=== PATIENT | male | born 1960 | race Caucasian/White ===

== ENCOUNTER 2017-12-09 20:27 | Emergency (ER) | payer BC, OTHER ==
--- NOTE | 2017-12-09 20:36 | PDOC ---
Rapid Medical Evaluation Time Seen by Provider: 12/09/17 20:36 Medical Evaluation: Allergies Allergy/AdvReac Type Severity Reaction Status Date / Time No Known Allergies Allergy Verified 10/01/15 14:36 12/09/17 20:36 57 year old male with hypertension and hypothyroidism, seen in Dr. Alvarez's office earlier today with severe low back pain radiating down the right leg. Given "a shot of something" but the pain has returned. Given Medrol dose pack and Tylenol #3 rx, but has not started either yet. Complains of numbness in the right leg. No bladder or bowel incontinence. Moving all extremities. 5/5 LE strength bilaterally. -Toradol 30mg IM x 1 -To FT for further evaluation Discharge Disposition - Referrals Referrals: Aria Alvarez MD [Primary Care Provider] - - Patient Instructions - Post Discharge Activity
[2017-12-09] MEDS ORDERED: KETOROLAC TROMETHAMINE 30 MG/1 ML VIAL IM ONE (20:39)
[2017-12-09 20:49] VITALS: BP 142/100; PULSE 88; TEMP 97.8; BMI 39.1
[2017-12-09] MEDS ORDERED: diazePAM 2 MG TABLET PO ONE (21:12)
[2017-12-09] MEDS ORDERED: KETOROLAC TROMETHAMINE 30 MG/1 ML VIAL ONE (21:59)
[2017-12-09] MEDS ORDERED: diazePAM 2 MG TABLET ONE (21:59)
--- NOTE | 2017-12-09 22:23 | PDOC ---
History of Present Illness <Shelia Otrega - Last Filed: 12/09/17 22:22> - General History Source: Patient Exam Limitations: No Limitations - History of Present Illness Initial Comments: 12/09/17 23:04 The patient is 57 year old male with past medical history of hypertension and hypothyroidism was sent to the emergency department by Dr. Tony with right lower extremity pain. The patient reports he was given a shot at the office for the pain but the effect is gone. The patient reports the pain started at mid buttock that radiates down to his right leg. Denies any fecal or urinary incontinence. No weakness, numbness or loss of sensation to the right extremities. Denies being on her blood thinners currently. Allergies: NKDA Social history: Former smoker. Denies alcohol or recreational drugs use. PCP: Dr. Tyrone Tony <Latisha Rivera - Last Filed: 12/09/17 23:20> - General Chief Complaint: Back Pain Stated Complaint: BACK PAIN Time Seen by Provider: 12/09/17 20:36 Past History - Suicide/Smoking/Psychosocial Hx Smoking History: Unknown if ever smoked Have you smoked in the past 12 months: No If you are a former smoker, when did you quit?: 15 YRS Hx Alcohol Use: Yes (SOCIAL) Drug/Substance Use Hx: No Substance Use Type: None <Shelia Ortega - Last Filed: 12/09/17 22:22> <Latisha Rivera - Last Filed: 12/09/17 23:20> - Past Medical History Allergies/Adverse Reactions: Allergies Allergy/AdvReac Type Severity Reaction Status Date / Time No Known Allergies Allergy Verified 12/09/17 20:37 Home Medications: Ambulatory Orders Acetaminophen W/ Codeine #3 [Tylenol # 3 -] 1 tab PO Q6H 12/09/17 Levothyroxine [Synthroid -] 75 mcg PO DAILY 12/09/17 Losartan Potassium [Cozaar -] 50 mg PO DAILY 12/09/17 Methylprednisolone [Medrol Dose Sandip] 4 mg PO ASDIR 12/09/17 Metoprolol Succinate [Toprol Xl -] 50 mg PO DAILY 12/09/17 Review of Systems - Review of Systems Able to Perform ROS?: Yes Comments:: 12/09/17 23:06 CONSTITUTIONAL: Absent: fever, no chills, no fatigue EYES: Absent: visual changes ENT: Absent: ear pain, no sore throat CARDIOVASCULAR: Absent: chest pain, no palpitations RESPIRATORY: Absent: cough, no SOB GI: Absent: abdominal pain, no nausea, no vomiting, no constipation, no diarrhea GENITOURINARY: Absent: dysuria, no frequency, no hematuria MUSKULOSKELETAL: (+) Right lower extremity pain. Absent: back pain, no arthralgia, no myalgia SKIN: Absent: rash NEURO: Absent: headache <Latisha Rivera - Last Filed: 12/09/17 23:20> *Physical Exam - Vital Signs Last Vital Signs Temp Pulse Resp BP Pulse Ox 97.8 F 88 26 H 142/100 99 12/09/17 20:41 12/09/17 20:41 12/09/17 20:41 12/09/17 20:41 12/09/17 20:41 <Shelia Ortega - Last Filed: 12/09/17 22:22> - Vital Signs Last Vital Signs Temp Pulse Resp BP Pulse Ox 97.8 F 88 26 H 142/100 99 12/09/17 20:41 12/09/17 20:41 12/09/17 20:41 12/09/17 20:41 12/09/17 20:41 - Physical Exam Comments: 12/09/17 23:17 GENERAL: Well-appearing, well-nourished. No apparent distress. HEENT: Normocephalic, atraumatic. PERRL, EOM intact. CARDIOVASCULAR: Normal S1, S2. Regular rate and rhythm. PULMONARY: Clear to auscultation bilaterally. ABDOMEN: (+) protuberant belly. Soft, non-distended, non-tender. EXTREMITIES: no deformities. Normal ROM in all four extremities. No gross deformities. SKIN: Warm, dry. No rash NEUROLOGICAL: No focal neurological deficits. ROS: <Latisha Rivera - Last Filed: 12/09/17 23:20> Moderate Sedation - Procedure Monitoring Vital Signs: Vital Signs Temp Pulse Resp BP Pulse Ox 97.8 F 88 26 H 142/100 99 12/09/17 20:41 12/09/17 20:41 12/09/17 20:41 12/09/17 20:41 12/09/17 20:41 <Shelia Ortega - Last Filed: 12/09/17 22:22> - Procedure Monitoring Vital Signs: Vital Signs Temp Pulse Resp BP Pulse Ox 97.8 F 88 26 H 142/100 99 12/09/17 20:41 12/09/17 20:41 12/09/17 20:41 12/09/17 20:41 12/09/17 20:41 <Latisha Rivera - Last Filed: 12/09/17 23:20> ED Treatment Course - RADIOLOGY Radiology Studies Ordered: Category Date Time Status LUMBAR SPINE CT W/O CONTRAST [CT] Stat CT Scan 12/09/17 21:12 Ordered <Shelia Ortega - Last Filed: 12/09/17 22:22> - Medications Given in the ED: ED Medications Discontinued Medications Generic Name Dose Route Start Last Admin Trade Name Freq PRN Reason Stop Dose Admin Diazepam 2 mg 12/09/17 21:12 12/09/17 22:37 Valium - PO 12/09/17 21:13 Not Given ONCE ONE Ketorolac Tromethamine 30 mg 12/09/17 20:39 12/09/17 22:36 Toradol Injection - IM 12/09/17 20:40 30 mg ONCE ONE Administration Oxycodone/Acetaminophen 2 combo 12/09/17 21:11 12/09/17 22:36 Percocet 5/325 - PO 12/09/17 21:12 Not Given ONCE ONE <Latisha Rivera - Last Filed: 12/09/17 23:20> Medical Decision Making - Medical Decision Making 12/09/17 23:18 Patient refused to take his opioid medication and CAT scan, patient was discharged. <Latisha Rivera - Last Filed: 12/09/17 23:20> *DC/Admit/Observation/Transfer <Shelia Ortega - Last Filed: 12/09/17 22:22> - Attestations Scribe Attestion: 12/09/17 23:06 Documentation prepared by Latisha Rivera, acting as medical housekeeper for Shelia Ortega MD. <Latisha Rivera - Last Filed: 12/09/17 23:20> Diagnosis at time of Disposition: Sciatica Qualifiers: Laterality: right Qualified Code(s): M54.31 - Sciatica, right side - Discharge Dispostion Disposition: HOME Condition at time of disposition: Stable - Referrals Referrals: Aria Tony MD [Primary Care Provider] - - Patient Instructions Printed Discharge Instructions: DI for Sciatica Additional Instructions: PLEASE FOLLOW UP WITH DR TONY - Post Discharge Activity
== END 2017-12-09 22:37 | disposition home or self-care (01) ==
LOC: JER 20:27
PROC: 3E0233Z Introduction of Anti-inflammatory into Muscle, Percutaneous Approach (ICD-10-PCS; principal; 2017-12-09)
DX: M54.41 Lumbago with sciatica, right side (principal); I10 Essential (primary) hypertension; E03.9 Hypothyroidism, unspecified
CPT/HCPCS: 99281-25

== ENCOUNTER 2017-12-17 11:51 | Day surgery (SDC) | payer BC ==
[2017-12-17 12:07] LABS: BASO % 0.2 % (0-2.0); HEMATOCRIT 49.6 % (35.4-49); HEMOGLOBIN 17.4 GM/dL (11.7-16.9); LYMPH % 34.6 % (8-40); MCH 30.1 pg (25.7-33.7); MEAN PLT VOLUME 6.7 fl (7.5-11.1); MONO % 7.4 % (3.8-10.2); NEUT % 56.8 % (42.8-82.8); PLATELET COUNT 507 K/MM3 (134-434); RBC 5.77 M/mm3 (4.00-5.60); WHITE BLOOD COUNT 20.5 K/mm3 (4.0-10.0)
[2017-12-17 12:26] VITALS: BMI 35.2
[2017-12-17 12:27] LABS: INR 1.06 (0.82-1.09)
[2017-12-17 12:35] LABS: PLATELET ESTIMATE INCREASED
[2017-12-17] MEDS ORDERED: BUPIVACAINE HCL/PF 0.5% (5MG/ML) 10 ML VIAL ONE (13:48)
[2017-12-17 15:16] VITALS: TEMP 98.7
[2017-12-17 16:39] VITALS: BP 103/73; PULSE 93
== END 2017-12-17 16:42 | disposition home or self-care (01) ==
LOC: JRADIR 11:51
PROVIDERS: ATTEND Family Medicine
PROC: 3E0R3BZ Introduction of Anesthetic Agent into Spinal Canal, Percutaneous Approach (ICD-10-PCS; principal; 2017-12-17)
PROC: 3E0R33Z Introduction of Anti-inflammatory into Spinal Canal, Percutaneous Approach (ICD-10-PCS; 2017-12-17)
PROC: B01BYZZ Fluoroscopy of Spinal Cord using Other Contrast (ICD-10-PCS; 2017-12-17)
DX: M51.27 Other intervertebral disc displacement, lumbosacral region (principal); M21.371 Foot drop, right foot; M54.89 Other dorsalgia
CPT/HCPCS: 36415; 62322; 77003-TC-FY; 85025; 85610

== ENCOUNTER 2017-12-17 18:04 | Inpatient (IN) | payer BC ==
--- NOTE | 2017-12-17 18:21 | PDOC ---
Rapid Medical Evaluation Time Seen by Provider: 12/17/17 18:15 Medical Evaluation: Allergies Allergy/AdvReac Type Severity Reaction Status Date / Time No Known Allergies Allergy Verified 12/17/17 18:15 12/17/17 18:15 Pt. presents with lower back pain radiating down to this R foot. States that the foot is numb. Went for epidural to the back with little relief of symptoms. Pt. to be admitted for surgery by Dr. Dubois tomorrow d/t nerve impingement. No bladder/bowel incontinence, saddle anesthesia Exam: in moderate distress d/t pain. non-ambulatory Orders: Labs, EKG, CXR Pt. to proceed to main ED for further evaluation
--- NOTE | 2017-12-17 18:30 | PDOC ---
Attending Attestation - Resident Resident Name: Jordan Ivan - ED Attending Attestation I have performed the following: I have examined & evaluated the patient, The case was reviewed & discussed with the resident, I agree w/resident's findings & plan, Exceptions are as noted - HPI HPI: 12/17/17 18:29 57 yo male p/w rt foot drop and neurosurgeon Dr Tomi Dubois is doing surgery for nerve impingement 12/17/17 19:09 WNWD 57 YO MALE head ncat lunbs cta b/l cvs [id number] abd protuberant,nontender neuro axox3,rt footdrop. ext no deformities - Physicial Exam PE: 12/18/17 04:01 PLEASE READ ABOVE - Medical Decision Making 12/17/17 19:05 pt will be admitted for surgery tomorrow
[2017-12-17 19:07] LABS: HEMATOCRIT 50.6 % (35.4-49); HEMOGLOBIN 17.4 GM/dL (11.7-16.9); MCH 29.8 pg (25.7-33.7); MCHC 34.5 g/dl (32.0-35.9); MEAN CELL VOLUME 86.3 fl (80-96); MEAN PLT VOLUME 6.9 fl (7.5-11.1); PLATELET COUNT 427 K/MM3 (134-434); RBC 5.86 M/mm3 (4.00-5.60); RDW 12.6 % (11.9-15.9)
[2017-12-17 19:27] LABS: INR 1.05 (0.82-1.09); PROTHROMBIN TIME (PATIENT) 11.9 SEC (9.7-13.0)
[2017-12-17 19:39] LABS: ANION GAP 9 (8-16); BLOOD UREA NITROGEN 24 mg/dL (7-18); CALCIUM 9.5 mg/dL (8.5-10.1); CHLORIDE 97 mmol/L (98-107); CO2 28 mmol/L (21-32); CREATININE 1.1 mg/dL (0.7-1.3); GLUCOSE,RANDOM 113 mg/dL (74-106); POTASSIUM 4.2 mmol/L (3.5-5.1); SGOT/AST 32 U/L (15-37); SGPT/ALT 84 U/L (12-78); SODIUM 134 mmol/L (136-145); TOT PROT 7.2 g/dl (6.4-8.2)
[2017-12-17 19:40] LABS: ALK PHOS 64 U/L (45-117)
--- NOTE | 2017-12-17 21:03 | PN ---
Progress Note (short form) - Note Progress Note: NEUROSURGERY Requested by Dr. Alvarez to see pt Chronic mild intermittent back pain Lifted up a large bottle of water > 1 week ago adn c/o severe pain radiating to R buttock, thigh, calf, foot. + weakness and difficulty ambulating. + numbness. Received IV steroid and hospitalized at [facility] last week. Persistent pain and R sciatica. Constipation and urinary hesitancy, though may be related to narcotic painkillers. Had EPSI earlier today but pain persisted. PMH: HTN, hypothyroidism MEDS: metoprolol, ASA(held x 10 days + as pt was not able to go shopping), synthroid, oxycodone NKDA So Hx: quite smoking > 1 decade ago; Occ EtOH; retired from being a flexographic printing machinist Family Hx: breast CA in mother ROS- negative for other constitutional, Head & neck, CV, Pulm, GI, , onc, psych, neuro issues other than the above PE: AF, VSS HEENT- NC/AT; Neck- supple; Cor- RRR; Lungs- CTA B; Abd- benign, mildly obese; Ext- no sign of DVT CN- intact; Motor- 5/5 except R IP/Quad/gastroc/TA/Ev 4-4-, R EHL/inv 3; Sensation- decreased LT/PP R L5-S1 > L4; DTR- 2+; Back- R sciatica notch tenderness; + SLR on R at 30 degrees WBC 17, Hgb 17.4, platelet 427k; INR 1.05, Cr 1.1, BUN 24; Na 134 UA 1 WBC, < 1 RBC LS spine MRI- mild disc bulges L2-3, L3-4, L4-5; facet and ligamentum hypertrophy; moderate L4-5 foramenal and lateral recess stenosis; R L5-S1 foramenal disc protrusion with superiorly migrating disc fragment and R L5 root impingement Acute R L5-S1 foramenal disc herniation/extrusion and L4-5 stenosis with intractable of R L5 > L4/S1 radiculopathy including neurological deficit ( weakness, numbness corresponding to L4-5 and L5-S1 pathology) OR tomorrow for R L4-5 partial laminectomies; R L5-S1 partial laminectomies, medial facetectomies, foramenotomy, microdiscectomy Risks: bleeding, infection, CSF leak, dural tear, neurological injury, instability; recurrence, need for future surgery Pre-op clearance in progress NPO after MN D/w Dr Alvarez and ED team Bed need d/w nursing supervisor engine repair, floor head nurse, and ED attending Pt and family aware of plan
[2017-12-17] MEDS ORDERED: HYDROmorphone HCL CARPU-JECT 1 MG/1 ML DISP.SYRIN IVPB PRN (21:32)
[2017-12-17] MEDS ORDERED: diazePAM CARPU-JECT 10 MG/2 ML DISP.SYRIN IVPUSH ONE (21:32)
--- NOTE | 2017-12-17 21:36 | PDOC ---
History of Present Illness - General Chief Complaint: Back Pain Stated Complaint: PCP SENT Time Seen by Provider: 12/17/17 18:15 History Source: Patient Exam Limitations: No Limitations - History of Present Illness Initial Comments: 12/17/17 21:49 Patient is a 57M with history of HTN here today complaining of back pain for the past several weeks. He was sent in by Dr Dubois for surgery tomorrow AM. Patient denies fevers, chills, cancer history, urinary symptoms, and saddle anesthesia. Endorses right foot weakness. Denies chest pain, abdominal pain, nausea and vomiting. Past History - Past Medical History Allergies/Adverse Reactions: Allergies Allergy/AdvReac Type Severity Reaction Status Date / Time No Known Allergies Allergy Verified 12/17/17 18:15 Home Medications: Ambulatory Orders Acetaminophen W/ Codeine #3 [Tylenol # 3 -] 1 tab PO Q6H 12/09/17 Levothyroxine [Synthroid -] 75 mcg PO DAILY 12/09/17 Losartan Potassium [Cozaar -] 50 mg PO DAILY 12/09/17 Methylprednisolone [Medrol Dose Sandip] 4 mg PO ASDIR 12/09/17 Metoprolol Succinate [Toprol Xl -] 50 mg PO DAILY 12/09/17 Cyclobenzaprine HCl [Flexeril -] 5 mg PO HS 12/17/17 Gabapentin [Neurontin] 100 mg PO TID 12/17/17 HYDROmorphone [Dilaudid -] 4 mg PO Q6H PRN 12/17/17 Omeprazole 40 mg PO DAILY 12/17/17 Pitavastatin Calcium [Livalo] 2 mg PO DAILY 12/17/17 Prednisone [Deltasone] 20 mg PO DAILY 12/17/17 COPD: No HTN: Yes - Suicide/Smoking/Psychosocial Hx Smoking History: Unknown if ever smoked Have you smoked in the past 12 months: No If you are a former smoker, when did you quit?: 15 YRS Information on smoking cessation initiated: No Hx Alcohol Use: Yes (SOCIAL) Drug/Substance Use Hx: No Substance Use Type: None Review of Systems - Review of Systems Comments:: 12/17/17 21:51 GENERAL/CONSTITUTIONAL: No fever or chills. HEAD, EYES, EARS, NOSE AND THROAT: No change in vision. No sore throat. CARDIOVASCULAR: No chest pain or shortness of breath RESPIRATORY: No cough, wheezing, or hemoptysis. GASTROINTESTINAL: No nausea, vomiting, diarrhea or constipation. GENITOURINARY: No dysuria, frequency, or change in urination. MUSCULOSKELETAL: No joint or muscle swelling or pain. Positive for lower back pain. SKIN: No rash NEUROLOGIC: No headache, vertigo, loss of consciousness. Positive for right foot drop. HEMATOLOGIC/LYMPHATIC: No anemia, easy bleeding, or history of blood clots. ALLERGIC/IMMUNOLOGIC: No hives or skin allergy. *Physical Exam - Vital Signs Last Vital Signs Temp Pulse Resp BP Pulse Ox 97.8 F 90 18 120/90 100 12/17/17 18:17 12/17/17 18:17 12/17/17 18:17 12/17/17 18:17 12/17/17 18:17 - Physical Exam Comments: 12/17/17 21:52 GENERAL: Awake, alert, and fully oriented, in no acute distress HEAD: No signs of trauma, normocephalic, atraumatic EYES: PERRLA, EOMI, sclera anicteric, conjunctiva clear ENT: Auricles normal inspection, hearing grossly normal, nares patent, oropharynx clear without exudates. Moist mucosa BACK: Tender in midline lower back. LUNGS: No distress, speaks full sentences, clear to auscultation bilaterally HEART: Regular rate and rhythm, normal S1 and S2, no murmurs, rubs or gallops, peripheral pulses normal and equal bilaterally. ABDOMEN: Soft, nontender, normoactive bowel sounds. No guarding, no rebound. No masses EXTREMITIES: Normal inspection, Normal range of motion, no edema. No clubbing or cyanosis. NEUROLOGICAL: Cranial nerves II through XII grossly intact. Normal speech, right foot drop SKIN: Warm, Dry, normal turgor, no rashes or lesions noted. ED Treatment Course - LABORATORY CBC & Chemistry Diagram: 12/17/17 18:51 12/17/17 18:51 - ADDITIONAL ORDERS Additional order review: Laboratory Results 12/17/17 12/17/17 12/17/17 18:51 18:51 18:51 PT with INR 11.90 INR 1.05 Sodium 134 L Potassium 4.2 Chloride 97 L Carbon Dioxide 28 Anion Gap 9 BUN 24 H Creatinine 1.1 Creat Clearance w eGFR > 60 Random Glucose 113 H Calcium 9.5 Total Bilirubin 1.0 AST 32 ALT 84 H Alkaline Phosphatase 64 Total Protein 7.2 Albumin 4.0 Blood Type A POSITIVE Antibody Screen Negative 12/17/17 18:51 RBC 5.86 H MCV 86.3 MCHC 34.5 RDW 12.6 MPV 6.9 L Neutrophils % 63.0 Lymphocytes % 28.0 Monocytes % 5.0 Eosinophils % 0.0 D Basophils % 0.0 Medical Decision Making - Medical Decision Making 12/17/17 21:54 Patient is 57M here today with back pain, going to OR tomorrow. Pre-op labs, cxr , and EKG drawn. Spoke with Dr Dubois, confirmed patient is going to OR tomorrow. Vital signs stable and normal. 12/17/17 21:56 Laboratory Tests 12/17/17 12/17/17 18:51 18:51 WBC 17.0 H Hgb 17.4 H BUN 24 H Creatinine 1.1 Labs show evidence of dehydration. Given 2L. Given dilaudid PO for pain control. *DC/Admit/Observation/Transfer Diagnosis at time of Disposition: Back pain - Discharge Dispostion Condition at time of disposition: Stable Decision to Admit order: Yes - Referrals Referrals: Aria Alvarez MD [Primary Care Provider] - - Patient Instructions - Post Discharge Activity
[2017-12-17] MEDS ORDERED: HYDROmorphone HCL 2 MG TABLET PO ONE (21:48)
[2017-12-17] MEDS ORDERED: HYDROmorphone HCL 2 MG TABLET ONE (21:51)
[2017-12-17 23:52] VITALS: BMI 33.3
[2017-12-18 00:17] LABS: URINE APPEARANCE CLEAR; URINE BILIRUBIN NEGATIVE (<2.0 mg/dL); URINE COLOR YELLOW; URINE GLUCOSE (UA) NEGATIVE (NEGATIVE); URINE KETONE NEGATIVE (NEGATIVE)
[2017-12-18 00:18] LABS: URINE BLOOD 1+ (NEGATIVE); URINE LEUK ESTERASE NEGATIVE (NEGATIVE); URINE NITRITE NEGATIVE (NEGATIVE); URINE PROTEIN NEGATIVE (NEGATIVE); URINE UROBILINOGEN NORMAL mg/dL (0.2-1.0)
[2017-12-18 00:19] LABS: URINE MUCUS RARE
[2017-12-18] MEDS: morphine SULFATE 4 MG/ML VIAL IVPUSH PRN ×2 (06:08→09:45)
[2017-12-18] MEDS ORDERED: FAMOTIDINE 20 MG/50 ML IVPB 20 MG/50 ML MG IVPB ONE (06:30)
[2017-12-18] MEDS ORDERED: DEXTROSE 5%-0.45% SALINE 1,000 ML IV SCH (06:30)
--- NOTE | 2017-12-18 08:27 | HP ---
Admitting History and Physical - Past Medical History Cardiovascular: Yes: CAD (denies), HTN, Hyperlipdemia Pulmonary: No: COPD Gastrointestinal: Yes: GERD Musculoskeletal: Yes: Chronic low back pain - Smoking History Smoking history: Unknown if ever smoked Have you smoked in the past 12 months: No If you are a former smoker, when did you quit?: 15 YRS - Alcohol/Substance Use Hx Alcohol Use: Yes (SOCIAL) Home Medications - Allergies Allergies/Adverse Reactions: Allergies Allergy/AdvReac Type Severity Reaction Status Date / Time No Known Allergies Allergy Verified 12/17/17 18:15 - Home Medications Home Medications: Ambulatory Orders Acetaminophen W/ Codeine #3 [Tylenol # 3 -] 1 tab PO Q6H 12/09/17 Levothyroxine [Synthroid -] 75 mcg PO DAILY 12/09/17 Losartan Potassium [Cozaar -] 50 mg PO DAILY 12/09/17 Methylprednisolone [Medrol Dose Sandip] 4 mg PO ASDIR 12/09/17 Metoprolol Succinate [Toprol Xl -] 50 mg PO DAILY 12/09/17 Cyclobenzaprine HCl [Flexeril -] 5 mg PO HS 12/17/17 Gabapentin [Neurontin] 100 mg PO TID 12/17/17 HYDROmorphone [Dilaudid -] 4 mg PO Q6H PRN 12/17/17 Omeprazole 40 mg PO DAILY 12/17/17 Pitavastatin Calcium [Livalo] 2 mg PO DAILY 12/17/17 Prednisone [Deltasone] 20 mg PO DAILY 12/17/17 Review of Systems - Review of Systems Cardiovascular: denies: Chest Pain Respiratory: denies: Cough, SOB, SOB on Exertion Gastrointestinal: denies: Abdominal Pain Musculoskeletal: reports: Back Pain Neurological: reports: Unsteady Gait, Weakness (right leg) Physical Examination Vital Signs: Vital Signs Temperature 97.8 F 12/18/17 06:58 Pulse Rate 104 H 12/18/17 06:58 Respiratory Rate 20 12/18/17 07:00 Blood Pressure 139/111 12/18/17 06:58 O2 Sat by Pulse Oximetry (%) 97 12/18/17 07:00 Cardiovascular: Yes: S1, S2 Respiratory: Yes: Regular, CTA Bilaterally Gastrointestinal: Yes: Normal Bowel Sounds, Soft Edema: No Neurological: Yes: Alert, Oriented, Weakness (right leg) Labs: CBC, BMP 12/17/17 18:51 12/17/17 18:51 Imaging - Results Chest X-ray: Report Reviewed Problem List - Problems (1) Lumbar disc herniation with radiculopathy Assessment/Plan: -acute -ns consult noted -to the or today Code(s): M51.16 - INTERVERTEBRAL DISC DISORDERS W RADICULOPATHY, LUMBAR REGION (2) HTN (hypertension) Assessment/Plan: -resume meds -monitor bp -ekg -cardio Code(s): I10 - ESSENTIAL (PRIMARY) HYPERTENSION (3) HLD (hyperlipidemia) Assessment/Plan: -statin Code(s): E78.5 - HYPERLIPIDEMIA, UNSPECIFIED (4) Leukocytosis Assessment/Plan: -probably related to steroids -ua nd cxr negative Code(s): D72.829 - ELEVATED WHITE BLOOD CELL COUNT, UNSPECIFIED
[2017-12-18] MEDS ORDERED: methylPREDNISolone 4 MG TABLET PO SCH (08:30)
[2017-12-18] MEDS ORDERED: PANTOPRAZOLE 40 MG TABLET (FP) PO SCH (10:00)
[2017-12-18] MEDS ORDERED: LOSARTAN POTASSIUM 50 MG TABLET (FP) PO SCH (10:00)
[2017-12-18] MEDS ORDERED: LEVOTHYROXINE NA 75 MCG TABLET (FP) PO SCH (10:00)
--- NOTE | 2017-12-18 10:17 | CON.CARD ---
Consult Consult Specialty:: Cardiology Referred by:: Aria Alvarez MD Reason for Consultation:: Pre-op cardiovascular evaluation - History of Present Illness Chief Complaint: Back pain History of Present Illness: 57 yo male h/o chest pain with negative cath c/w endothelila dysfunction vs prinzmetal variant angina, diastolic dysfunction euvolemic, HTN/HCVD, hyperlipideima, hypothyroidism, chronic mild intermittent back pain, sustained right sciatica after lifting up a large bottle of water > 1 week ago with c/o severe pain radiating to R buttock, thigh, calf, foot. + weakness and difficulty ambulating. + numbness. Received IV steroid and hospitalized at [facility] last week. Persistent pain and R sciatica. Constipation and urinary hesitancy, though may be related to narcotic painkillers. Had EPSI earlier today but pain persisted. He is planned for OR today for R L4-5 partial laminectomies; R L5-S1 partial laminectomies, medial facetectomies, foramenotomy , microdiscectomy, last saw Dr. Gore 05/15/2017, denies chest pain, dyspnea , orthopnea, PND, peripheral edema, palpitations, near or true syncope, fatigue , last ASA intake was 2 weeks ago. - History Source History Provided By: Patient Limitations to Obtaining History: No Limitations - Past Medical History Cardio/Vascular: Yes: CAD (denies), HTN, Hyperlipdemia Pulmonary: No: COPD Gastrointestinal: Yes: GERD Musculoskeletal: Yes: Chronic low back pain - Alcohol/Substance Use Hx Alcohol Use: Yes (SOCIAL) - Smoking History Smoking history: Unknown if ever smoked Have you smoked in the past 12 months: No If you are a former smoker, when did you quit?: 15 YRS Home Medications - Allergies Allergies/Adverse Reactions: Allergies Allergy/AdvReac Type Severity Reaction Status Date / Time No Known Allergies Allergy Verified 12/17/17 18:15 - Home Medications Home Medications: Ambulatory Orders Acetaminophen W/ Codeine #3 [Tylenol # 3 -] 1 tab PO Q6H 12/09/17 Levothyroxine [Synthroid -] 75 mcg PO DAILY 12/09/17 Losartan Potassium [Cozaar -] 50 mg PO DAILY 12/09/17 Methylprednisolone [Medrol Dose Sandip] 4 mg PO ASDIR 12/09/17 Metoprolol Succinate [Toprol Xl -] 50 mg PO DAILY 12/09/17 Cyclobenzaprine HCl [Flexeril -] 5 mg PO HS 12/17/17 Gabapentin [Neurontin] 100 mg PO TID 12/17/17 HYDROmorphone [Dilaudid -] 4 mg PO Q6H PRN 12/17/17 Omeprazole 40 mg PO DAILY 12/17/17 Pitavastatin Calcium [Livalo] 2 mg PO DAILY 12/17/17 Prednisone [Deltasone] 20 mg PO DAILY 12/17/17 Review of Systems - Review of Systems Musculoskeletal: reports: Back Pain Neurological: reports: Numbness, Parasthesia, Weakness - Risk Factors Known Risk Factors: Yes: Hypercholesterolemia Vital Signs: Vital Signs Temperature 97.8 F 12/18/17 06:58 Pulse Rate 104 H 12/18/17 06:58 Respiratory Rate 20 12/18/17 07:00 Blood Pressure 139/111 12/18/17 06:58 O2 Sat by Pulse Oximetry (%) 97 12/18/17 07:00 Constitutional: Yes: No Distress, Calm Neck: Yes: Supple Respiratory: Yes: Regular, CTA Bilaterally Gastrointestinal: Yes: Normal Bowel Sounds, Soft Cardiovascular: Yes: Regular Rate and Rhythm JVD: No Carotid Bruit: No Heart Sounds: Yes: S1, S2 Edema: No - Other Data Labs, Other Data: CBC, BMP 12/17/17 18:51 12/17/17 18:51 INR, PTT INR 1.05 (0.82-1.09) 12/17/17 18:51 05/15/2017 NSR @ [address]-T changes similar to previous Echo: Report Reviewed Prior Cardiac Procedures: Cardiac Catheterization Ejection Fraction %: LVEF > or = 40 % Imaging - Results Chest X-ray: Report Reviewed (Plate-like ATX right base) MRI: Report Reviewed (LS spine MRI- mild disc bulges L2-3, L3-4, L4-5; facet and ligamentum hypertrophy; moderate L4-5 foramenal and lateral recess stenosis ; R L5-S1 foramenal disc protrusion with superiorly migrating disc fragment and R L5 root impingement Acute R L5-S1 foramenal disc herniation/extrusion and L4- 5 stenosis with intractable of R L5 > L4/S1 radiculopathy including neurological deficit (weakness, numbness corresponding to L4-5 and L5-S1 pathology)) Problem List - Problems (1) Pre-operative cardiovascular examination Code(s): Z01.810 - ENCOUNTER FOR PREPROCEDURAL CARDIOVASCULAR EXAMINATION (2) HLD (hyperlipidemia) Code(s): E78.5 - HYPERLIPIDEMIA, UNSPECIFIED Qualifiers: Hyperlipidemia type: mixed hyperlipidemia Qualified Code(s): E78.2 - Mixed hyperlipidemia (3) HTN (hypertension) Code(s): I10 - ESSENTIAL (PRIMARY) HYPERTENSION Qualifiers: Hypertension type: essential hypertension Qualified Code(s): I10 - Essential (primary) hypertension (4) Lumbar disc herniation with radiculopathy Code(s): M51.16 - INTERVERTEBRAL DISC DISORDERS W RADICULOPATHY, LUMBAR REGION (5) Sciatica Code(s): M54.30 - SCIATICA, UNSPECIFIED SIDE Qualifiers: Laterality: right Qualified Code(s): M54.31 - Sciatica, right side (6) Endothelial dysfunction of coronary artery Code(s): I99.8 - OTHER DISORDER OF CIRCULATORY SYSTEM Assessment/Plan Echo: 10/28/2015 cLVH with normal LV systolic function, mild MR and TR Nuc Stress: 01/13/2014 No ischemia, normal LV fxn LVEF 74%, submaximal stress test 75% MPHR 1. Pre-op cardiovascular evaluation prior to partial laminectomy for right sciatica 2. Chest pain syndrome with negative cath c/w endothelial dysfunction vs prinzmetal variant angina 3. Diastolic dysfunction euvolemic 4. HTN/HCVD 5. Mixed hyperlipideima 6. Hypothyroidism P:1. Given nuclear stress showing no ischemia 01/13/2015 without new sxs suggestive of acute coronary syndrome, decompensated CHF or malignant arrhythmia , may proceed spinal surgery without further testing, recheck ECG 2. Continue losartan 50 qd, Toprol XL 50 qd, Livalo 2 qd, steroid taper and analgesia as needed per NSG 3. ASA held gloria-op and to resume once post-op hemostasis has been achieved . Thank you for consultative opportunity
[2017-12-18] MEDS ORDERED: DEXAMETHASONE SOD PHOSPHATE 4 MG/1 ML VIAL ONE (11:01)
[2017-12-18] MEDS ORDERED: ONDANSETRON 4 MG/2 ML VIAL ONE ×2 (11:01→16:05)
[2017-12-18] MEDS ORDERED: fentaNYL CITRATE 250 MCG/5 ML VIAL ONE ×2 (11:01→13:58)
[2017-12-18] MEDS ORDERED: LIDOCAINE HCL/PF 2% SDV 5ML VIAL ONE (11:01)
[2017-12-18] MEDS ORDERED: KETOROLAC TROMETHAMINE 30 MG/1 ML VIAL ONE (11:01)
[2017-12-18] MEDS ORDERED: PROPOFOL 20 ML ONE ×2 (11:02→11:51)
[2017-12-18] MEDS ORDERED: ROCURONIUM BROMIDE 50 MG/5 ML VIAL ONE ×2 (11:02→11:51)
[2017-12-18] MEDS ORDERED: MIDAZOLAM HCL 2 MG/2 ML SINGLE DOSE VIAL ONE (11:02)
[2017-12-18] MEDS ORDERED: BUPIVACAINE HCL/PF 0.5% (5MG/ML) 10 ML VIAL ONE (11:04)
[2017-12-18] MEDS ORDERED: THROMBIN (BOVINE) 5,000 UNIT VIAL TP ONE ×2 (11:04→12:30)
[2017-12-18] MEDS ORDERED: BACITRACIN 15 GM TUBE TOPICAL OINTMENT ONE (11:04)
[2017-12-18] MEDS ORDERED: methylPREDNISolone ACET (DEPO) 40 MG/1 ML VIAL ONE (11:04)
[2017-12-18 11:33] LABS: BASO % 0.2 % (0-2.0); HEMATOCRIT 47.3 % (35.4-49); HEMOGLOBIN 16.6 GM/dL (11.7-16.9); LYMPH % 20.7 % (8-40); MCH 30.2 pg (25.7-33.7); MCHC 35.2 g/dl (32.0-35.9); MEAN PLT VOLUME 7.2 fl (7.5-11.1); NEUT % 70.1 % (42.8-82.8); PLATELET COUNT 328 K/MM3 (134-434); RDW 12.7 % (11.9-15.9); WHITE BLOOD COUNT 13.5 K/mm3 (4.0-10.0)
[2017-12-18] MEDS ORDERED: SUCCINYLCHOLINE CHLORIDE 200 MG/10 ML VIAL ONE (11:52)
[2017-12-18] MEDS ORDERED: BENZOIN/ALOE VERA/STORAX/TOLU 58 ML BOTTLE ONE (11:59)
[2017-12-18] MEDS ORDERED: ceFAZolin SODIUM 1 GM VIAL IVPB ONE (12:10)
[2017-12-18] MEDS ORDERED: PHENYLEPHRINE HCL 10 MG/1 ML SINGLE DOSE VIAL ONE (12:37)
--- NOTE | 2017-12-18 13:21 | EKG ---
Test Reason : Blood Pressure : / mmHG Vent. Rate : 094 BPM Atrial Rate : 094 BPM P-R Int : 170 ms QRS Dur : 094 ms QT Int : 368 ms P-R-T Axes : 006 028 019 degrees QTc Int : 460 ms NORMAL SINUS RHYTHM NORMAL ECG WHEN COMPARED WITH ECG OF 16-NOV-2002 07:27, QT HAS LENGTHENED Confirmed by DYLAN GASCA MD ([id number]) on 12/18/2017 1:21:35 PM Referred By: RANJIT WEBSTER DR Confirmed By:DYLAN GASCA MD
[2017-12-18] MEDS ORDERED: BUPIVACAINE HCL/PF (5 MG/ML) 30 ML VIAL IJ ONE (13:38)
--- NOTE | 2017-12-18 13:56 | OP ---
Operative Note - Note: Operative Date: 12/18/17 Pre-Operative Diagnosis: L4-5 stenosis, R L5-S1 foramenal disc herniation; intractbale R L5 > L4 and S1 radiculopathy with mild-moderate foot drop Operation: Partial R L4, L5, S1 hemilaminectomies; R L4-5 and L5-S1 foramenotomies, R L5-S1 medial facetectomy; R L5-S1 foramenal microdiscectomy; micordissection; R L5-S1 autograft (laminar) and allograft (graft-on) posterolateral fusion Findings: R L5-S1 extruded HNP with foramenal stenosis; R L4-5 lateral recess stenosis Implants: graft-on; Surgicell Post-Operative Diagnosis: Same as Pre-op Surgeon: Jordan Dubois Trailer Sections Assembler: Kathi Shine Anesthesiologist/SENIOR DATABASE ADMINISTRATOR: Dalton Smith Anesthesia: General Specimens Removed: R L5-S1 disc Estimated Blood Loss (mls): 10
[2017-12-18] MEDS ORDERED: ONDANSETRON 4 MG/2 ML VIAL IVPUSH PRN ×3 (13:57→15:21)
[2017-12-18] MEDS ORDERED: NEOSTIGMINE METHYLSULFATE 0.5 MG/ML - 10 ML MDV ONE (13:57)
[2017-12-18] MEDS ORDERED: BACITRACIN 15 GM TUBE TOPICAL OINTMENT TP ONE (13:57)
[2017-12-18] MEDS ORDERED: GLYCOPYRROLATE 0.2 MG/1 ML VIAL ONE ×2 (13:57)
[2017-12-18] MEDS ORDERED: oxyCODONE HCL 5 MG TABLET PO PRN ×2 (13:57→14:27)
[2017-12-18] MEDS ORDERED: D5-1/2NS+20 MEQ KCL - 20 MEQ/1,000 ML INFUS.BAG IV SCH (14:00)
[2017-12-18] MEDS ORDERED: DOCUSATE SODIUM 100 MG CAPSULE (FP) PO SCH (14:00)
[2017-12-18] MEDS ORDERED: GABAPENTIN 100 MG CAPSULE (FP) PO SCH (14:00)
[2017-12-18] MEDS ORDERED: diazePAM 5 MG TABLET PO SCH (14:00)
[2017-12-18] MEDS ORDERED: PROMETHAZINE HCL 25 MG/1 ML VIAL IVPB PRN ×2 (14:27→15:21)
[2017-12-18] MEDS ORDERED: LACTATED RINGERS SOLUTION 1,000 ML IV SCH (14:30)
[2017-12-18] MEDS ORDERED: HYDROmorphone *PCA* 10MG/50ML DISP.SYRIN PCA SCH ×2 (14:30→15:21)
--- NOTE | 2017-12-18 15:17 | OP ---
DATE OF OPERATION: 12/18/2017 PREOPERATIVE DIAGNOSES: 1. Right L5-S1 foraminal disk herniation/extrusion with right L5 and S1 nerve root impingement. 2. Right L4-5 lateral recess stenosis with right L5 greater than L4 nerve root impingement. 3. Acute right L5 greater than L4 and S1 radiculopathy with mild-moderate right foot drop and right foot numbness. 4. Hypertension. 5. Obesity. 6. Hypothyroidism. POSTOPERATIVE DIAGNOSES: 1. Right L5-S1 foraminal disk herniation/extrusion with right L5 and S1 nerve root impingement. 2. Right L4-5 lateral recess stenosis with right L5 greater than L4 nerve root impingement. 3. Acute right L5 greater than L4 and S1 radiculopathy with mild-moderate right foot drop and right foot numbness. 4. Hypertension. 5. Obesity. 6. Hypothyroidism. ATTENDING SURGEON: Jordan Chavira MD BLEACH BOILER PACKER: GREGG Verdin ANESTHESIA: General endotracheal. ANESTHESIOLOGIST: Dalton Smith MD PROCEDURE: 1. Posterolateral fusion with autologous laminar bone and [place], right L5-S1 ([id number]). 2. Partial right L4, L5 and S1 laminectomies for decompression of the thecal sac as well as right L4, L5 and S1 nerve roots (51334-52, [id number], [id number]). 3. [place] of autologous laminar bone graft for posterolateral L5-S1 fusion ( [id number]). 4. Microsurgical dissection with operating microscope and microsurgical techniques ([id number]). 5. Right L5-S1 medial facetectomy as well as right L4-5 and L5-S1 foraminotomy with concurrent right L5-S1 microdiskectomy. FINDINGS: 1. Right L5-S1 extruded disk herniation in neural foramen with right L5 nerve root impingement. 2. L4-5 and L5-S1 lateral recess stenosis. INDICATIONS: The patient is a 57-year-old male with history of chronic intermittent lower back pain who was lifting a heavy barrel of water 1+ plus week with severe lower back pain and right lower extremity radiculopathy. The pain radiated down to the right lower extremity all the way down to the foot. This was associated with right foot weakness and numbness. He has developed a mild to moderate foot drop over about 1-1/2 weeks. He was treated with IV steroid as well as 1 epidural steroid injection, but his pain persisted. He was found to have worsening weakness and numbness and was unable to ambulate. He was admitted through the emergency room for emergency neurosurgical procedure. Because of the extensive foraminal decompression and the medial facetectomy being carried out, concurrent right L5-S1 fusion will be performed with autologous bone graft and allograft to augment the stability at this level. The risks of the procedure include but are not limited to bleeding, infection, dural tear with CSF leak, neurologic injury including thromboembolic risks and other risks of general anesthesia. The patient understands the indication for the procedure, procedure in detail, risks and benefits and alternatives for treatment of his condition and wished to proceed. No guarantee was given for a favorable outcome. PROCEDURE IN DETAIL: After the patient was taken to the operating room he was placed in the supine position. After general anesthesia was induced and appropriate monitoring lines were placed he was turned into the prone position on a Luis frame. All pressure points were checked and padded. Lumbar incision was previously marked. An approximately 2-inch incision was opened in the midline from S1 all the way up to the bottom of L4. Subperiosteal dissection was carried out on the right side with periosteal elevator and monopolar electrocautery. A fairly deep exposure was encountered. The L4-5 and L5-S1 facet joints were skeletonized and preserved. A self-retaining retractor was inserted at this time. A lateral localizing x-ray was obtained with the probe at the L5-S1 interlaminar space. After the position was verified partial laminectomy on the right side at L4, L5 and S1 were carried out. Bottom lamina of the right L4 and top and bottom lamina of L5 as well as top lamina of S1 were all removed with a combination of high-speed pneumatic drill, angled curet and Kerrison rongeur. Microscope was used for this portion of the procedure for both illumination and magnification. Microsurgical techniques were utilized. The underlying ligamentum flavum was dissected free with an angled curet and resected with Kerrison rongeur. The L5-S1 level was completed first. A fair amount of medial facetectomy was also needed in order to approach the foraminal disk herniation on the right side at L5-S1. Approximately 25% to 30% of the medial facet was drilled down and the lateral recess was exposed. The neural foramen at right L5-S1 was watertight at this point. A probe could not pass through it. The disk annulus was incised with a No. 11 blade and disk material was mobilized with a blunt nerve hook and removed with a pituitary rongeur. Several fragments of disk material were removed and sent for pathology. Upgoing pituitary rongeur was used to remove further disk material from the mid and distal neural foramen. Hemostasis was obtained using bipolar electrocautery. The wound was copiously irrigated with antibiotic-containing irrigation. The neural foramen was patent after decompression was completed. This maneuver decompressed the right L5 nerve root and neural foramen. The right S1 nerve root was followed towards the neural foramen down below and was decompressed accordingly. Epidural hemostasis was obtained with bipolar electrocautery and the wound was irrigated. The attention turned to the L4-5 interspace where partial hemilaminectomies at L4 and L5 were carried out. A right-sided foraminotomy was also carried out with an angled curet and Kerrison rongeur. The lateral recess was somewhat stenotic as well. The L4 and L5 nerve roots were followed towards their respective neural foramen. They were both felt to be patent after decompression was completed. The wound was once again irrigated with antibiotic-containing irrigation and 10 mL of 0.5% Marcaine were injected in the paraspinal muscle on the right side only. A trough was created laterally for the bone graft. During the exposure laminar bone graft was saved and morcellized. It was then mixed with 1 mL of Brie. The mixed bone graft of both allograft and autograft were placed in the lateral gutter. The bone was just slightly decorticated with the high-speed pneumatic drill prior to the bone graft placement. Pieces of Surgicel were laid in the epidural space at L4-5 and L5- S1. At this point paraspinal hemostasis was obtained with bipolar electrocautery. Dorsolumbar fascia was closed with 0 Vicryl suture. Subcutaneous fascia was closed with 3-0 Vicryl suture. Skin was closed with 4-0 Vicryl running subcuticular suture. Steri-Strips and a sterile occlusive dressing were applied. Patient tolerated procedure well and was turned back into the supine position and extubated. All needle and lap counts were correct. The OR timeout procedure was followed. The patient received 1 dose of 2 g of Ancef prior to the incision. He was moving bilateral upper and lower extremities well in the recovery room. The family was updated as to the intraoperative findings as well as the patient's postoperative condition. JORDAN CHAVIRA M.D. MILENA/[id number] MTDD
--- NOTE | 2017-12-18 15:30 | PN ---
Progress Note (short form) - Note Progress Note: NEUROSURGERY In PACU Somewhat anxious PE: AF, VSS, O2 sat 100% HEENT- NC/AT; Neck- supple; Cor- RRR; Lungs- CTA B; Abd- benign, mildly obese; Ext- no sign of DVT Dressing C/D/I CN- intact; Motor- 4+/5 generally except R IP/Quad/gastroc/TA/Ev 4, R EHL/inv 4- 4-, improved overall; Sensation- decreased LT/PP R L5-S1 > L4 Stable post-op Findings and patient condition d/w family in waiting area AVIONICS ELECTRICAL ENGINEER for pain Valium Medical f/u
[2017-12-18] MEDS: D5-1/2NS+20 MEQ KCL - 20 MEQ/1,000 ML INFUS.BAG IV SCH (15:46)
[2017-12-18] MEDS ORDERED: CEFAZOLIN 1 GM in DEXTROSE 5%-WATER - 50 ML IVPB SCH (18:00)
[2017-12-18] MEDS ORDERED: ceFAZolin SODIUM 1 GM VIAL ONE (18:49)
[2017-12-18] MEDS ORDERED: DEXTROSE 5%-WATER - 50 ML IVPB ONE (18:49)
[2017-12-18] MEDS: CEFAZOLIN 1 GM in DEXTROSE 5%-WATER - 50 ML IVPB SCH (19:08)
[2017-12-18] MEDS: oxyCODONE HCL 5 MG TABLET PO PRN (20:32)
[2017-12-18] MEDS ORDERED: morphine SULFATE 4 MG/ML VIAL IVPUSH PRN (20:35)
[2017-12-18] MEDS: diazePAM 5 MG TABLET PO SCH ×2 (22:24→22:27)
[2017-12-18] MEDS: DOCUSATE SODIUM 100 MG CAPSULE (FP) PO SCH (22:24)
[2017-12-18] MEDS: GABAPENTIN 100 MG CAPSULE (FP) PO SCH (22:25)
[2017-12-19] MEDS: diazePAM 5 MG TABLET PO SCH ×4 (00:22→22:07)
[2017-12-19] MEDS: oxyCODONE HCL 5 MG TABLET PO PRN ×4 (00:34→18:01)
[2017-12-19] MEDS ORDERED: ceFAZolin SODIUM 1 GM VIAL ONE (00:45)
[2017-12-19] MEDS ORDERED: DEXTROSE 5%-WATER - 50 ML IVPB ONE (00:46)
[2017-12-19] MEDS: CEFAZOLIN 1 GM in DEXTROSE 5%-WATER - 50 ML IVPB SCH (01:30)
[2017-12-19] MEDS: D5-1/2NS+20 MEQ KCL - 20 MEQ/1,000 ML INFUS.BAG IV SCH (01:31)
[2017-12-19] MEDS: DOCUSATE SODIUM 100 MG CAPSULE (FP) PO SCH ×3 (05:49→21:43)
[2017-12-19] MEDS: GABAPENTIN 100 MG CAPSULE (FP) PO SCH ×3 (05:50→21:42)
[2017-12-19] MEDS: LEVOTHYROXINE NA 75 MCG TABLET (FP) PO SCH (06:51)
--- NOTE | 2017-12-19 07:01 | PN ---
Progress Note (short form) - Note Progress Note: NEUROSURGERY POD #1 Incisional pain better this am Less anxious Some foot numbess No sciatica Strength better PE: AF, VSS HEENT- NC/AT; Neck- supple; Cor- RRR; Lungs- CTA B; Abd- benign, mildly obese; Ext- no sign of DVT Dressing C/D/I CN- intact; Motor- 5/5 except R IP/Quad/gastroc/TA/Ev/EHL/inv 4+, overall; Sensation- decreased LT/PP R L5 Stable post-op Findings and condition d/w pt Pain meds Bowel regimen Activity level advised Regular diet Medical f/u
--- NOTE | 2017-12-19 09:21 | PN ---
Progress Note, Physician History of Present Illness: Patient underwent partial R L4, L5, S1 hemilaminectomies; R L4-5 and L5-S1 foramenotomies, R L5-S1 medial facetectomy; R L5-S1 foramenal microdiscectomy; micordissection; R L5-S1 autograft (laminar) and allograft (graft-on) posterolateral fusion with resolution of sciatica and improved strength, reports some right foot numbness. Denies chest pain, dyspnea, palpitations. - Current Medication List Current Medications: Active Medications Diazepam (Valium -) 5 mg PO TID [facility] Last Admin: 12/19/17 05:50 Dose: 5 mg Docusate Sodium (Colace -) 100 mg PO TID [facility] Last Admin: 12/19/17 05:49 Dose: 100 mg Gabapentin (Neurontin -) 100 mg PO TID [facility] Last Admin: 12/19/17 05:50 Dose: 100 mg Potassium Chloride/Dextrose/Sod Cl (D5-1/2ns+20 Meq Kcl -) 20 meq in 1,000 mls @ 100 mls/hr IV ASDIR [facility] Last Admin: 12/19/17 01:31 Dose: 100 mls/hr Levothyroxine Sodium (Synthroid -) 75 mcg PO DAILY@0700 [facility] Last Admin: 12/19/17 06:51 Dose: 75 mcg Losartan Potassium (Cozaar -) 50 mg PO DAILY [facility] Metoprolol Succinate (Toprol Xl -) 50 mg PO DAILY [facility] Morphine Sulfate (Morphine Sulfate) 4 mg IVPUSH Q3H PRN PRN Reason: PAIN LEVEL 6-10 Ondansetron HCl (Zofran Injection) 4 mg IVPUSH Q6H PRN PRN Reason: NAUSEA AND/OR VOMITING Last Admin: 12/18/17 16:05 Dose: 4 mg Oxycodone HCl (Roxicodone -) 5 mg PO Q4H PRN PRN Reason: PAIN LEVEL 4 - 6 Last Admin: 12/19/17 08:27 Dose: 5 mg Pantoprazole Sodium (Protonix -) 40 mg PO DAILY [facility] Promethazine HCl (Phenergan Injection -) 12.5 mg IVPB Q6H PRN PRN Reason: NAUSEA-FOR RESCUE AFTER 15 MIN - Objective Vital Signs: Vital Signs Temperature 98.6 F 12/19/17 06:00 Pulse Rate 98 H 12/19/17 06:00 Respiratory Rate 18 05/31/18 07:00 Blood Pressure 102/60 12/19/17 06:00 O2 Sat by Pulse Oximetry (%) 8 L 12/19/17 07:00 Constitutional: Yes: No Distress, Calm Neck: Yes: Supple Cardiovascular: Yes: Regular Rate and Rhythm Respiratory: Yes: Regular, CTA Bilaterally Gastrointestinal: Yes: Normal Bowel Sounds, Soft Edema: No Labs: CBC, BMP 12/18/17 09:56 12/17/17 18:51 INR, PTT INR 1.05 (0.82-1.09) 12/17/17 18:51 - ....Imaging EKG: Report Reviewed (NSR @ 94, normal ST-T) Problem List - Problems (1) HLD (hyperlipidemia) Code(s): E78.5 - HYPERLIPIDEMIA, UNSPECIFIED Qualifiers: Hyperlipidemia type: mixed hyperlipidemia Qualified Code(s): E78.2 - Mixed hyperlipidemia (2) HTN (hypertension) Code(s): I10 - ESSENTIAL (PRIMARY) HYPERTENSION Qualifiers: Hypertension type: essential hypertension Qualified Code(s): I10 - Essential (primary) hypertension (3) Lumbar disc herniation with radiculopathy Code(s): M51.16 - INTERVERTEBRAL DISC DISORDERS W RADICULOPATHY, LUMBAR REGION (4) Sciatica Code(s): M54.30 - SCIATICA, UNSPECIFIED SIDE Qualifiers: Laterality: right Qualified Code(s): M54.31 - Sciatica, right side (5) Endothelial dysfunction of coronary artery Code(s): I99.8 - OTHER DISORDER OF CIRCULATORY SYSTEM (6) History of laminectomy Code(s): Z98.890 - OTHER SPECIFIED POSTPROCEDURAL STATES Assessment/Plan Echo: 10/28/2015 cLVH with normal LV systolic function, mild MR and TR Nuc Stress: 01/13/2014 No ischemia, normal LV fxn LVEF 74%, submaximal stress test 75% MPHR 1. POD#1 partial laminectomy for right sciatica 2. Chest pain syndrome with negative cath c/w endothelial dysfunction vs prinzmetal variant angina 3. Diastolic dysfunction euvolemic 4. HTN/HCVD 5. Mixed hyperlipideima 6. Hypothyroidism P:1. Analgesia as needed with bowel regimen, post-op care 2. Continue losartan 50 qd, Toprol XL 50 qd, Livalo 2 qd, DVT and GI prophylaxis 3. ASA held gloria-op and to resume once post-op hemostasis has been achieved 4. Mobilize as tolerated
[2017-12-19] MEDS: PANTOPRAZOLE 40 MG TABLET (FP) PO SCH (11:44)
[2017-12-19] MEDS: LOSARTAN POTASSIUM 50 MG TABLET (FP) PO SCH (11:44)
--- NOTE | 2017-12-19 12:08 | SURG ---
Surgery Cash Application Clerk Note Cash Application Clerk: Kathi Shine PA-C Date of Service: 12/18/17 Diagnosis: L4-5 stenosis, R L5-S1 foramenal disc herniation; intractbale R L5 > L4 and S1 radiculopathy with mild-moderate foot drop Procedure: Partial R L4, L5, S1 hemilaminectomies; R L4-5 and L5-S1 foramenotomies, R L5- S1 medial facetectomy; R L5-S1 foramenal microdiscectomy; micordissection; R L5- S1 autograft (laminar) and allograft (graft-on) posterolateral fusion I was present for the entirety of the operative procedure. For further detail, please refer to operative report. Visit type - Case Type Case Type: ED Admission - Emergency Emergency Visit: Yes ED Registration Date: 12/17/17 Care time: The patient presented to the Emergency Department on the above date and was hospitalized for further evaluation of their emergent condition. - New patient This patient is new to me today: Yes Date on this admission: 12/19/17 - Critical Care Critical Care patient: No
--- NOTE | 2017-12-19 12:37 | PN ---
Progress Note, Physician Chief Complaint: day #1 postop - Current Medication List Current Medications: Active Medications Diazepam (Valium -) 5 mg PO TID [facility] Last Admin: 12/19/17 05:50 Dose: 5 mg Docusate Sodium (Colace -) 100 mg PO TID [facility] Last Admin: 12/19/17 05:49 Dose: 100 mg Gabapentin (Neurontin -) 100 mg PO TID [facility] Last Admin: 12/19/17 05:50 Dose: 100 mg Potassium Chloride/Dextrose/Sod Cl (D5-1/2ns+20 Meq Kcl -) 20 meq in 1,000 mls @ 100 mls/hr IV ASDIR [facility] Last Admin: 12/19/17 01:31 Dose: 100 mls/hr Levothyroxine Sodium (Synthroid -) 75 mcg PO DAILY@0700 [facility] Last Admin: 12/19/17 06:51 Dose: 75 mcg Losartan Potassium (Cozaar -) 50 mg PO DAILY [facility] Last Admin: 12/19/17 11:44 Dose: 50 mg Metoprolol Succinate (Toprol Xl -) 50 mg PO DAILY [facility] Last Admin: 12/19/17 11:45 Dose: Not Given Morphine Sulfate (Morphine Sulfate) 4 mg IVPUSH Q3H PRN PRN Reason: PAIN LEVEL 6-10 Ondansetron HCl (Zofran Injection) 4 mg IVPUSH Q6H PRN PRN Reason: NAUSEA AND/OR VOMITING Last Admin: 12/18/17 16:05 Dose: 4 mg Oxycodone HCl (Roxicodone -) 5 mg PO Q4H PRN PRN Reason: PAIN LEVEL 4 - 6 Last Admin: 12/19/17 08:27 Dose: 5 mg Pantoprazole Sodium (Protonix -) 40 mg PO DAILY [facility] Last Admin: 12/19/17 11:44 Dose: 40 mg Promethazine HCl (Phenergan Injection -) 12.5 mg IVPB Q6H PRN PRN Reason: NAUSEA-FOR RESCUE AFTER 15 MIN - Objective Vital Signs: Vital Signs Temperature 98.6 F 12/19/17 06:00 Pulse Rate 98 H 12/19/17 06:00 Respiratory Rate 18 12/19/17 07:00 Blood Pressure 102/60 12/19/17 06:00 O2 Sat by Pulse Oximetry (%) 8 L 12/19/17 07:00 Labs: CBC, BMP 12/18/17 09:56 12/17/17 18:51 INR, PTT INR 1.05 (0.82-1.09) 12/17/17 18:51 Assessment/Plan resting comfortably- miminal use of CONSTRUCTION SITE CROSSING GUARD
--- NOTE | 2017-12-19 13:31 | PN ---
Progress Note, Physician Chief Complaint: in bed not using outpatient scheduler pump has not had BM wants enema tommorow - Current Medication List Current Medications: Active Medications Diazepam (Valium -) 5 mg PO TID [facility] Last Admin: 12/19/17 05:50 Dose: 5 mg Docusate Sodium (Colace -) 100 mg PO TID [facility] Last Admin: 12/19/17 05:49 Dose: 100 mg Gabapentin (Neurontin -) 100 mg PO TID [facility] Last Admin: 12/19/17 13:23 Dose: 100 mg Levothyroxine Sodium (Synthroid -) 75 mcg PO DAILY@0700 [facility] Last Admin: 12/19/17 06:51 Dose: 75 mcg Losartan Potassium (Cozaar -) 50 mg PO DAILY [facility] Last Admin: 12/19/17 11:44 Dose: 50 mg Metoprolol Succinate (Toprol Xl -) 50 mg PO DAILY [facility] Last Admin: 12/19/17 11:45 Dose: Not Given Morphine Sulfate (Morphine Sulfate) 4 mg IVPUSH Q3H PRN PRN Reason: PAIN LEVEL 6-10 Ondansetron HCl (Zofran Injection) 4 mg IVPUSH Q6H PRN PRN Reason: NAUSEA AND/OR VOMITING Last Admin: 12/18/17 16:05 Dose: 4 mg Oxycodone HCl (Roxicodone -) 5 mg PO Q4H PRN PRN Reason: PAIN LEVEL 4 - 6 Last Admin: 12/19/17 12:35 Dose: 5 mg Pantoprazole Sodium (Protonix -) 40 mg PO DAILY [facility] Last Admin: 12/19/17 11:44 Dose: 40 mg Promethazine HCl (Phenergan Injection -) 12.5 mg IVPB Q6H PRN PRN Reason: NAUSEA-FOR RESCUE AFTER 15 MIN - Objective Vital Signs: Vital Signs Temperature 98.6 F 12/19/17 06:00 Pulse Rate 98 H 12/19/17 06:00 Respiratory Rate 18 12/19/17 07:00 Blood Pressure 102/60 12/19/17 06:00 O2 Sat by Pulse Oximetry (%) 8 L 12/19/17 07:00 Constitutional: Yes: Calm Neck: Yes: Trachea Midline Cardiovascular: Yes: Regular Rate and Rhythm, S1, S2 Respiratory: Yes: CTA Bilaterally Gastrointestinal: Yes: Normal Bowel Sounds, Soft Musculoskeletal: Yes: Other (midline back dressing) Edema: No Neurological: Yes: Alert, Oriented Labs: CBC, BMP 12/18/17 09:56 12/17/17 18:51 INR, PTT INR 1.05 (0.82-1.09) 12/17/17 18:51 Problem List - Problems (1) Back pain Assessment/Plan: Date of Service: 12/18/17 Diagnosis: L4-5 stenosis, R L5-S1 foramenal disc herniation; intractbale R L5 > L4 and S1 radiculopathy with mild-moderate foot drop Procedure: Partial R L4, L5, S1 hemilaminectomies; R L4-5 and L5-S1 foramenotomies, R L5- S1 medial facetectomy; R L5-S1 foramenal microdiscectomy; micordissection; R L5- S1 autograft (laminar) and allograft (graft-on) posterolateral fusion patient is not using [facility] [employer] [facility] pump stool softners- doesnot want miralax fito add senna for today he wants to take enema tmw oxycodone/valium PT Code(s): M54.9 - DORSALGIA, UNSPECIFIED (2) Diastolic dysfunction Assessment/Plan: losartan, BB, Code(s): I51.9 - HEART DISEASE, UNSPECIFIED (3) Hypothyroid Assessment/Plan: on synthroid Code(s): E03.9 - HYPOTHYROIDISM, UNSPECIFIED
[2017-12-19] MEDS ORDERED: SENNOSIDES 8.6MG TABLET (FP) PO SCH (22:00)
[2017-12-20] MEDS: GABAPENTIN 100 MG CAPSULE (FP) PO SCH (05:25)
[2017-12-20] MEDS: DOCUSATE SODIUM 100 MG CAPSULE (FP) PO SCH (05:25)
[2017-12-20] MEDS: diazePAM 5 MG TABLET PO SCH (05:27)
[2017-12-20] MEDS: LEVOTHYROXINE NA 75 MCG TABLET (FP) PO SCH (06:18)
[2017-12-20] MEDS: oxyCODONE HCL 5 MG TABLET PO PRN (07:15)
[2017-12-20 07:30] LABS: BASO % 0.3 % (0-2.0); EOS % 2.3 % (0-4.5); HEMATOCRIT 42.9 % (35.4-49); HEMOGLOBIN 15.1 GM/dL (11.7-16.9); LYMPH % 16.5 % (8-40); MCH 30.5 pg (25.7-33.7); MCHC 35.3 g/dl (32.0-35.9); MEAN CELL VOLUME 86.5 fl (80-96); MEAN PLT VOLUME 7.2 fl (7.5-11.1); MONO % 8.1 % (3.8-10.2); NEUT % 72.8 % (42.8-82.8); PLATELET COUNT 310 K/MM3 (134-434); RBC 4.96 M/mm3 (4.00-5.60); RDW 12.7 % (11.9-15.9); WHITE BLOOD COUNT 10.9 K/mm3 (4.0-10.0)
--- NOTE | 2017-12-20 07:51 | PN ---
Progress Note (short form) - Note Progress Note: NEUROSURGERY POD #2 Incisional pain better Less anxious Able to walk to bathroom with walker No sciatica and minimal tingling Strength better BM x1 PE: AF, VSS HEENT- NC/AT; Neck- supple; Cor- RRR; Lungs- CTA B; Abd- benign, mildly obese; Ext- no sign of DVT Dressing C/D/I CN- intact; Motor- 5/5 except R IP 4+, overall significantly improved R foot drop; Sensation- improved LT/PP R L5 Stable post-op Findings and condition d/w pt Pain meds Bowel regimen Activity level advised wound care instructed Regular diet From neurosurgical standpoint could be discharged home with VNS F/u plan discussed with pt and
--- NOTE | 2017-12-20 08:17 | PN ---
Progress Note (short form) - Note Progress Note: Patient stable and being DC home this morning.HEALTH COUNSELOR was DC yesterday.No any anesthesia related problem.Patient Dc from the anesthesia care.
[2017-12-20 08:43] LABS: CALCIUM 8.8 mg/dL (8.5-10.1); CHLORIDE 99 mmol/L (98-107); POTASSIUM 4.2 mmol/L (3.5-5.1); SODIUM 136 mmol/L (136-145)
--- NOTE | 2017-12-20 08:55 | DS ---
Physical Examination Vital Signs: Vital Signs Temperature 98.5 F 12/20/17 06:00 Pulse Rate 102 H 12/20/17 06:00 Respiratory Rate 20 12/20/17 06:00 Blood Pressure 130/62 12/20/17 06:00 O2 Sat by Pulse Oximetry (%) 8 L 12/19/17 07:00 Findings/Remarks: feels better no complaints of pain numbness resolved Cardiovascular: Yes: Regular Rate and Rhythm Respiratory: Yes: Regular, CTA Bilaterally Gastrointestinal: Yes: Normal Bowel Sounds, Soft Labs: CBC, BMP 12/20/17 06:00 Discharge Summary Reason For Visit: BACK PAIN Current Active Problems Back pain (Acute) Diastolic dysfunction (Acute) Endothelial dysfunction of coronary artery (Acute) HLD (hyperlipidemia) (Acute) HTN (hypertension) (Acute) History of laminectomy (Acute) Hypothyroid (Acute) Leukocytosis (Acute) Lumbar disc herniation with radiculopathy (Acute) Pre-operative cardiovascular examination (Acute) Hospital Course: - Problems (1) Back pain Assessment/Plan: Date of Service: 12/18/17 Diagnosis: L4-5 stenosis, R L5-S1 foramenal disc herniation; intractbale R L5 > L4 and S1 radiculopathy with mild-moderate foot drop Procedure: Partial R L4, L5, S1 hemilaminectomies; R L4-5 and L5-S1 foramenotomies, R L5- S1 medial facetectomy; R L5-S1 foramenal microdiscectomy; micordissection; R L5- S1 autograft (laminar) and allograft (graft-on) posterolateral fusion 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 Change dressing afterwards with sterile 4x4 and bio-occlusive. Restrictions: Do not lift anything over 10lbs. Light activity only Additional Instructions: Keep incision line clean and dry. Change dressing daily after shower and PRN. Report any chills, fever (100.5 or greater), any wound drainage, or any neurological changes to Dr. Dubois. Do not drive for two weeks until cleared by Dr Dubois. Initial postop appt: Call Dr Dubois's office [phone] to be seen in about 2 weeks post-op Referrals: Aria Alvarez MD [Primary Care Provider] - 1 Week Jordan Dubois MD [Staff Physician] - - Home Medications Comprehensive Discharge Medication List: Ambulatory Orders Levothyroxine [Synthroid -] 75 mcg PO DAILY 12/09/17 Losartan Potassium [Cozaar -] 50 mg PO DAILY 12/09/17 Metoprolol Succinate [Toprol XL -] 50 mg PO DAILY 12/09/17 Gabapentin [Neurontin] 100 mg PO TID 12/17/17 Omeprazole 40 mg PO DAILY 12/17/17 Pitavastatin Calcium [Livalo] 2 mg PO DAILY 12/17/17 Docusate Sodium [Colace -] 100 mg PO TID capsule 12/20/17
[2017-12-20 09:11] LABS: ALBUMIN 3.5 g/dl (3.4-5.0); ALK PHOS 66 U/L (45-117); ANION GAP 8 (8-16); BLOOD UREA NITROGEN 13 mg/dL (7-18); CO2 29 mmol/L (21-32); CREATININE 0.9 mg/dL (0.7-1.3); GLUCOSE,RANDOM 136 mg/dL (74-106); SGOT/AST 35 U/L (15-37); SGPT/ALT 113 U/L (12-78); TOT PROT 6.4 g/dl (6.4-8.2)
[2017-12-20 09:52] VITALS: BP 110/68; PULSE 106; TEMP 99.8
[2017-12-20] MEDS: LOSARTAN POTASSIUM 50 MG TABLET (FP) PO SCH (09:56)
[2017-12-20] MEDS: PANTOPRAZOLE 40 MG TABLET (FP) PO SCH (09:56)
--- NOTE | 2017-12-20 13:21 | PATH ---
Surgical Pathology Report Patient Name: FREDDIE TONY Med. Rec. #: [id number] /Age/Gender: 1960 (Age: 57) / M Account: [id number] Location: [facility] MED/SURG Taken: 12/18/2017 Received: 12/19/2017 Reported: 12/20/2017 Physicians: Jordan Dubois M.D. Specimen(s) Received REMOVAL OF L5 S1 DISC Clinical History Back pain Final Diagnosis RIGHT L5-S1 DISC, PARTIAL LAMINECTOMY: CARTILAGINOUS TISSUE WITH DEGENERATIVE CHANGE. Electronically Signed Latanya Willoughby M.D. Gross Description Received in formalin labeled "right L5-S1 disc," is a 2.2 x 2.0 x 0.3 cm. aggregate of chacon fragments of fibrocartilaginous tissue. A dairy supplies sales representative portion is submitted in one cassette. /12/19/2017 saudi12/19/2017
== END 2017-12-20 11:44 | disposition home or self-care (01) | DRG 460 ==
LOC: JER 18:04 → JERBED 22:06 → J8W 23:12
PROVIDERS: ADMIT Family Medicine; ATTEND Family Medicine
PROC: 01NB0ZZ Release Lumbar Nerve, Open Approach (ICD-10-PCS; 2017-12-18)
PROC: 0SG30AJ Fusion of Lumbosacral Joint with Interbody Fusion Device, Posterior Approach, Anterior Column, Open Approach (ICD-10-PCS; principal; 2017-12-18 13:00)
PROC: 0SB40ZZ Excision of Lumbosacral Disc, Open Approach (ICD-10-PCS; 2017-12-18 13:00)
DX: M51.17 Intervertebral disc disorders with radiculopathy, lumbosacral region (principal); E03.9 Hypothyroidism, unspecified; K21.9 Gastro-esophageal reflux disease without esophagitis; E78.5 Hyperlipidemia, unspecified; D72.829 Elevated white blood cell count, unspecified; I11.9 Hypertensive heart disease without heart failure; E78.2 Mixed hyperlipidemia; M48.061 Spinal stenosis, lumbar region without neurogenic claudication; E66.9 Obesity, unspecified; Z68.33 Body mass index [BMI] 33.0-33.9, adult
CPT/HCPCS: 36415; 71046-TC-FY; 72020-TC-FY; 80053; 81003; 81015; 84443; 85025; 85610; 86850; 86900; 86901; 88304-TC; 93005; 93010; 94760; 97116-GP; 97162-GP; 99282-25

== ENCOUNTER 2021-04-26 04:12 | Day surgery (SDC) | payer BC ==
[2021-04-25 09:35] VITALS: BMI 33.7
[2021-04-26] MEDS ORDERED: LIDOCAINE HCL/PF 1% SDV 5ML VIAL ONE (07:25)
[2021-04-26] MEDS ORDERED: BUPIVACAINE HCL/PF 0.25% (2.5MG/ML) 10 ML VIAL ONE (07:25)
[2021-04-26] MEDS ORDERED: methylPREDNISolone ACET (DEPO) 80 MG/1 ML VIAL ONE (07:25)
[2021-04-26] MEDS ORDERED: MIDAZOLAM HCL 2 MG/2 ML SINGLE DOSE VIAL ONE (07:45)
[2021-04-26] MEDS ORDERED: PROPOFOL 20 ML ONE ×3 (07:55)
[2021-04-26] MEDS ORDERED: BUPIVACAINE HCL/PF 0.25% (2.5MG/ML) 10 ML VIAL IJ ONE (07:57)
[2021-04-26] MEDS ORDERED: LIDOCAINE 1% P/F 10 MG/ML VIAL INF ONE (07:57)
[2021-04-26] MEDS ORDERED: methylPREDNISolone ACET (DEPO) 80 MG/1 ML VIAL IJ ONE (07:57)
[2021-04-26 08:48] VITALS: BP 134/86; PULSE 83; TEMP 97.8
== END 2021-04-26 09:10 | disposition home or self-care (01) ==
LOC: JASU-SURG 04:12
PROVIDERS: ATTEND Neurological Surgery
PROC: 3E0R33Z Introduction of Anti-inflammatory into Spinal Canal, Percutaneous Approach (ICD-10-PCS; 2021-04-26)
PROC: 3E0R3BZ Introduction of Anesthetic Agent into Spinal Canal, Percutaneous Approach (ICD-10-PCS; principal; 2021-04-26 07:30)
DX: M54.16 Radiculopathy, lumbar region (principal); Z98.890 Other specified postprocedural states; M48.061 Spinal stenosis, lumbar region without neurogenic claudication
CPT/HCPCS: 76000-TC-FY

== ENCOUNTER 2021-05-17 04:27 | Day surgery (SDC) | payer BC ==
[2021-05-16 12:52] VITALS: BMI 33.0
[2021-05-17] MEDS ORDERED: fentaNYL CITRATE 250 MCG/5 ML VIAL ONE ×2 (09:56→12:12)
[2021-05-17] MEDS ORDERED: PROPOFOL 20 ML ONE ×2 (09:56→11:34)
[2021-05-17] MEDS ORDERED: ROCURONIUM BROMIDE 50 MG/5 ML SYRINGE ONE ×2 (09:56→12:09)
[2021-05-17] MEDS ORDERED: MIDAZOLAM HCL 2 MG/2 ML SINGLE DOSE VIAL ONE (09:56)
[2021-05-17] MEDS ORDERED: NEOSTIGMINE METHYLSULFATE 0.5 MG/1 ML - 10 ML MDV ONE ×2 (10:00→13:23)
[2021-05-17] MEDS ORDERED: GLYCOPYRROLATE 0.2 MG/1 ML VIAL ONE (10:00)
[2021-05-17] MEDS ORDERED: methylPREDNISolone ACET (DEPO) 40 MG/1 ML VIAL ONE (10:49)
[2021-05-17] MEDS ORDERED: BENZOIN/ALOE VERA/STORAX/TOLU 58 ML BOTTLE ONE (10:49)
[2021-05-17] MEDS ORDERED: VANCOMYCIN 1,000 MG VIAL (RESTRICTED TO ID ONLY) ONE (10:49)
[2021-05-17] MEDS ORDERED: BACITRACIN 15 GM TUBE TOPICAL OINTMENT ONE (10:50)
[2021-05-17] MEDS ORDERED: BUPIVACAINE HCL/PF 0.5% (5MG/ML) 10 ML VIAL ONE (10:50)
[2021-05-17] MEDS ORDERED: THROMBIN (BOVINE) 5,000 UNIT VIAL TP ONE ×2 (10:50→12:15)
[2021-05-17] MEDS ORDERED: HYDROmorphone HCl 2 MG/ML VIAL ONE (11:42)
[2021-05-17] MEDS ORDERED: ceFAZolin SODIUM 1 GM VIAL IVPB ONE (11:44)
[2021-05-17] MEDS ORDERED: VANCOMYCIN 1,000 MG VIAL (RESTRICTED TO ID ONLY) IVPB ONE (11:48)
[2021-05-17] MEDS ORDERED: ePHEDrine SULFATE 50 MG/1 ML AMPULE ONE (11:53)
[2021-05-17] MEDS ORDERED: BUPIVACAINE HCL/PF 0.5% (5 MG/ML) 30 ML VIAL IJ ONE (13:20)
[2021-05-17] MEDS ORDERED: BENZOIN/ALOE VERA/STORAX/TOLU 58 ML BOTTLE TP ONE (13:47)
[2021-05-17] MEDS ORDERED: BACITRACIN 15 GM TUBE TOPICAL OINTMENT TP ONE (13:48)
[2021-05-17] MEDS ORDERED: ONDANSETRON 4 MG/2 ML VIAL IVPUSH PRN ×3 (14:06→14:23)
[2021-05-17] MEDS ORDERED: LACTATED RINGERS SOLUTION 1,000 ML IV SCH (14:15)
[2021-05-17] MEDS ORDERED: HYDROmorphone *PCA* 10MG/50ML DISP.SYRIN PCA SCH (14:15)
[2021-05-17] MEDS ORDERED: BISACODYL 10 MG SUPP.RECT RC PRN (14:23)
[2021-05-17] MEDS ORDERED: D5-1/2NS+20 MEQ KCL - 1,000 ML IV SCH (14:30)
[2021-05-17 15:43] LABS: HEMATOCRIT 38.4 % (35.4-49); HEMOGLOBIN 13.7 GM/dL (11.7-16.9); MCHC 35.7 g/dl (32.0-35.9); MEAN CELL VOLUME 86.7 fl (80-96); MEAN PLT VOLUME 7.1 fl (7.5-11.1); PLATELET COUNT 235 10^3/uL (134-434); RBC 4.43 M/mm3 (4.00-5.60); RDW 13.1 % (11.9-15.9); WHITE BLOOD COUNT 6.6 K/mm3 (4.0-10.0)
[2021-05-17 15:47] LABS: CALCIUM 9.3 mg/dL (8.5-10.1)
[2021-05-17 15:48] LABS: BLOOD UREA NITROGEN 14.5 mg/dL (7-18)
[2021-05-17 15:51] LABS: CREATININE 0.9 mg/dL (0.55-1.3)
[2021-05-17] MEDS: D5-1/2NS+20 MEQ KCL - 20 MEQ/1,000 ML INFUS.BAG IV SCH (16:03)
[2021-05-17] MEDS ORDERED: PROMETHAZINE HCL 25 MG/1 ML VIAL ONE (16:16)
[2021-05-17] MEDS ORDERED: PROMETHAZINE HCL 25 MG/1 ML VIAL IVPUSH PRN (16:22)
[2021-05-17] MEDS ORDERED: PROMETHAZINE HCL 25 MG/1 ML VIAL IVPB ONE (16:22)
[2021-05-17] MEDS ORDERED: PCA PUMP NR ONE (18:40)
[2021-05-17] MEDS ORDERED: ceFAZolin SODIUM 1 GM VIAL ONE (20:48)
[2021-05-17] MEDS ORDERED: DEXTROSE 5%-WATER - 50 ML IVPB ONE (20:48)
[2021-05-17] MEDS: CEFAZOLIN 1 GM in DEXTROSE 5%-WATER - 1 GM/50 ML IVPB IVPB SCH (21:00)
[2021-05-17] MEDS: ACETAMINOPHEN 325 MG TABLET (FP) PO PRN (21:14)
[2021-05-17] MEDS: DOCUSATE SODIUM 100 MG CAPSULE (FP) PO SCH (21:15)
[2021-05-17] MEDS: diazePAM 5 MG TABLET PO SCH (21:15)
[2021-05-18] MEDS ORDERED: ACETAMINOPHEN 500 MG TABLET (FP) PO ONE (04:00)
[2021-05-18] MEDS ORDERED: DEXTROSE 5%-WATER - 50 ML IVPB ONE (04:54)
[2021-05-18] MEDS ORDERED: ceFAZolin SODIUM 1 GM VIAL ONE (04:54)
[2021-05-18] MEDS: CEFAZOLIN 1 GM in DEXTROSE 5%-WATER - 1 GM/50 ML IVPB IVPB SCH ×2 (04:59→11:49)
[2021-05-18] MEDS: D5-1/2NS+20 MEQ KCL - 20 MEQ/1,000 ML INFUS.BAG IV SCH (05:00)
[2021-05-18] MEDS: DOCUSATE SODIUM 100 MG CAPSULE (FP) PO SCH ×2 (06:17→06:21)
[2021-05-18] MEDS: diazePAM 5 MG TABLET PO SCH (06:17)
[2021-05-18] MEDS ORDERED: LEVOTHYROXINE NA 75 MCG TABLET (FP) PO SCH (07:00)
[2021-05-18] MEDS: ACETAMINOPHEN 325 MG TABLET (FP) PO PRN (08:03)
[2021-05-18] MEDS ORDERED: PANTOPRAZOLE 40 MG TABLET PO SCH (10:00)
[2021-05-18] MEDS ORDERED: LOSARTAN POTASSIUM 50 MG TABLET PO SCH (10:00)
[2021-05-18] MEDS ORDERED: PCA PUMP NR ONE (13:30)
[2021-05-18 15:39] VITALS: BP 116/70; PULSE 93; TEMP 98
== END 2021-05-18 15:34 | disposition home or self-care (01) ==
LOC: JASUSAT 04:27 → EDSTATUS 11:45 → J6S 17:04 → JASUSAT 05-18 15:34
PROVIDERS: ATTEND Neurological Surgery
PROC: 00NY0ZZ Release Lumbar Spinal Cord, Open Approach (ICD-10-PCS; 2021-05-17)
PROC: 01NB0ZZ Release Lumbar Nerve, Open Approach (ICD-10-PCS; principal; 2021-05-17 11:00)
DX: M48.061 Spinal stenosis, lumbar region without neurogenic claudication (principal); M54.10 Radiculopathy, site unspecified; I10 Essential (primary) hypertension; G96.12 Meningeal adhesions (cerebral) (spinal)
CPT/HCPCS: 20930; 22612; 63042; 63044; C1713; 36415; 72100-TC-FY; 80048; 85027; 86850; 86900; 86901; 94760; 97116-GP; 97162-GP

== ENCOUNTER 2023-07-31 04:18 | Inpatient (IN) | payer BC ==
[2023-07-25 17:31] VITALS: BMI 33.4
[~2023-07-31 04:18] MED LIST: BUPIVACAINE HCL/PF 0.5% (5MG/ML) 10 ML VIAL IJ ONE
[2023-07-31] MEDS ORDERED: PROPOFOL 40 ML ONE (09:27)
[2023-07-31] MEDS ORDERED: TRANEXAMIC ACID 1000 MG/10 ML VIAL ONE (09:29)
[2023-07-31] MEDS ORDERED: ceFAZolin SODIUM 1 GM VIAL ONE (09:29)
[2023-07-31] MEDS ORDERED: SODIUM CHLORIDE 0.9% P/F 10 ML VIAL IJ ONE ×3 (09:29→12:12)
[2023-07-31] MEDS ORDERED: DEXAMETHASONE SOD PHOSPHATE 4 MG/1 ML VIAL ONE (09:29)
[2023-07-31] MEDS ORDERED: ONDANSETRON 4 MG/2 ML VIAL ONE (09:29)
[2023-07-31] MEDS ORDERED: LIDOCAINE HCL/PF 2% SDV 5ML VIAL ONE ×2 (09:29→15:10)
[2023-07-31] MEDS ORDERED: MIDAZOLAM HCL 2 MG/2 ML SINGLE DOSE VIAL ONE (09:45)
[2023-07-31] MEDS ORDERED: HYDROmorphone HCl 2 MG/ML VIAL ONE (09:46)
[2023-07-31] MEDS ORDERED: PROPOFOL 60 ML ONE ×3 (09:47→14:11)
[2023-07-31] MEDS ORDERED: THROMBIN (BOVINE) 5,000 UNIT VIAL TP ONE ×2 (11:13→14:00)
[2023-07-31] MEDS ORDERED: BUPIVACAINE HCL/PF 0.5% (5MG/ML) 10 ML VIAL ONE (11:15)
[2023-07-31] MEDS ORDERED: BACITRACIN ZINC 15 GM TUBE TOPICAL OINTMENT ONE (11:15)
[2023-07-31] MEDS ORDERED: GENTAMICIN SO4 80 MG/2 ML VIAL ONE (12:14)
[2023-07-31] MEDS ORDERED: ceFAZolin SODIUM 1 GM VIAL IVPB ONE ×2 (13:00→13:15)
[2023-07-31] MEDS ORDERED: VANCOMYCIN 1,000 MG VIAL (RESTRICTED TO ID ONLY) ONE (13:01)
[2023-07-31] MEDS ORDERED: ROCURONIUM BROMIDE 50 MG/5 ML SYRINGE ONE (13:11)
[2023-07-31] MEDS ORDERED: PHENYLEPHRINE HCL 10 MG/1 ML SINGLE DOSE VIAL ONE (13:54)
[2023-07-31] MEDS ORDERED: PROPOFOL 80 ML ONE (14:43)
[2023-07-31] MEDS ORDERED: MAGNESIUM SULF 50% (8.12 MEQ/2 ML-1 GM VIAL) ONE (14:55)
[2023-07-31] MEDS ORDERED: BUPIVACAINE HCL/PF 0.5% (5MG/ML) 10 ML VIAL IJ ONE (15:02)
[2023-07-31] MEDS ORDERED: ACETAMINOPHEN 325 MG TABLET (FP) PO PRN ×2 (15:43→15:56)
[2023-07-31] MEDS ORDERED: oxyCODONE HCL 5 MG TABLET PO PRN ×2 (15:43)
[2023-07-31] MEDS ORDERED: ONDANSETRON 4 MG/2 ML VIAL IVPUSH PRN ×2 (15:43→15:56)
[2023-07-31] MEDS ORDERED: LACTATED RINGERS SOLUTION 1,000 ML IV SCH (15:45)
[2023-07-31] MEDS ORDERED: BISACODYL 10 MG SUPP.RECT RC PRN (15:56)
[2023-07-31] MEDS ORDERED: D5-1/2NS+20 MEQ KCL - 1,000 ML IV SCH (16:00)
[2023-07-31] MEDS ORDERED: HYDROmorphone *PCA* 10MG/50ML DISP.SYRIN PCA SCH ×3 (16:30→21:15)
[2023-07-31] MEDS ORDERED: HYDROmorphone *PCA* 10MG/50ML DISP.SYRIN ONE (16:37)
[2023-07-31] MEDS ORDERED: HYDROmorphone *PCA* 10MG/50ML DISP.SYRIN PCA ONE (16:45)
[2023-07-31 16:50] LABS: HEMATOCRIT 37.6 % (35.4-49); HEMOGLOBIN 13.4 GM/dL (11.7-16.9); MCH 31.8 pg (25.7-33.7); MCHC 35.7 g/dl (32.0-35.9); MEAN CELL VOLUME 89.1 fl (80-96); MEAN PLT VOLUME 6.9 fl (7.5-11.1); PLATELET COUNT 262 10^3/uL (134-434); RBC 4.22 M/mm3 (4.00-5.60); RDW 13.5 % (11.9-15.9); WHITE BLOOD COUNT 7.9 K/mm3 (4.0-10.0)
[2023-07-31 17:08] LABS: POTASSIUM 4.7 mmol/L (3.5-5.1)
[2023-07-31 17:10] LABS: BLOOD UREA NITROGEN 14.1 mg/dL (7-18); CALCIUM 9.2 mg/dL (8.5-10.1)
[2023-07-31 17:14] LABS: CREATININE 0.9 mg/dL (0.55-1.3)
[2023-07-31] MEDS: diazePAM 5 MG TABLET PO SCH ×3 (18:39→21:22)
[2023-07-31] MEDS: D5-1/2NS+20 MEQ KCL - 20 MEQ/1,000 ML INFUS.BAG IV SCH (19:03)
[2023-07-31 20:31] VITALS: RESP 18
[2023-07-31] MEDS: DOCUSATE SODIUM 100 MG CAPSULE (FP) PO SCH (21:21)
[2023-07-31] MEDS: CEFAZOLIN 1 GM in DEXTROSE 5%-WATER - 50 ML IVPB SCH (22:18)
[2023-08-01] MEDS: diazePAM 5 MG TABLET PO SCH ×3 (00:12→11:46)
[2023-08-01] MEDS: D5-1/2NS+20 MEQ KCL - 20 MEQ/1,000 ML INFUS.BAG IV SCH (03:45)
[2023-08-01] MEDS: MAG HYDROX/AL HYDROX/SIMETH 30 ML UNIT-DOSE CUP PO ONE ×2 (05:23→05:31)
[2023-08-01] MEDS: CEFAZOLIN 1 GM in DEXTROSE 5%-WATER - 50 ML IVPB SCH ×2 (05:23→12:00)
[2023-08-01] MEDS: DOCUSATE SODIUM 100 MG CAPSULE (FP) PO SCH ×2 (05:23→13:37)
[2023-08-01] MEDS ORDERED: LEVOTHYROXINE NA 75 MCG TABLET (FP) PO SCH (07:00)
[2023-08-01] MEDS: LOSARTAN POTASSIUM 50 MG TABLET PO SCH ×2 (09:11→11:45)
[2023-08-01 09:29] VITALS: BP 102/67
[2023-08-01 09:34] VITALS: PULSE 97; TEMP 98.4
[2023-08-01] MEDS ORDERED: PANTOPRAZOLE 40 MG TABLET PO SCH (10:00)
[2023-08-01] MEDS ORDERED: oxyCODONE HCL 5 MG TABLET PO PRN (10:10)
[2023-08-01 11:12] LABS: BASO % 0.1 % (0-2.0); EOS % 0.2 % (0-4.5); HEMATOCRIT 35.8 % (35.4-49); HEMOGLOBIN 12.7 GM/dL (11.7-16.9); LYMPH % 17.7 % (8-40); MCH 31.7 pg (25.7-33.7); MCHC 35.6 g/dl (32.0-35.9); MEAN CELL VOLUME 89.1 fl (80-96); MEAN PLT VOLUME 7.3 fl (7.5-11.1); PLATELET COUNT 288 10^3/uL (134-434); RBC 4.02 M/mm3 (4.00-5.60); RDW 13.3 % (11.9-15.9); WHITE BLOOD COUNT 10.7 K/mm3 (4.0-10.0)
== END 2023-08-01 14:27 | disposition home or self-care (01) | DRG 460 ==
LOC: J2C 04:18 → J8W 18:36
PROVIDERS: ADMIT Neurological Surgery; ATTEND Neurological Surgery
PROC: 01NB0ZZ Release Lumbar Nerve, Open Approach (ICD-10-PCS; 2023-07-31)
PROC: 0SG3071 Fusion of Lumbosacral Joint with Autologous Tissue Substitute, Posterior Approach, Posterior Column, Open Approach (ICD-10-PCS; 2023-07-31)
PROC: 4A11X4G Monitoring of Peripheral Nervous Electrical Activity, Intraoperative, External Approach (ICD-10-PCS; 2023-07-31)
PROC: 0SG1071 Fusion of 2 or more Lumbar Vertebral Joints with Autologous Tissue Substitute, Posterior Approach, Posterior Column, Open Approach (ICD-10-PCS; principal; 2023-07-31 12:00)
DX: M48.061 Spinal stenosis, lumbar region without neurogenic claudication (principal); M54.16 Radiculopathy, lumbar region; G96.12 Meningeal adhesions (cerebral) (spinal); I10 Essential (primary) hypertension; E03.9 Hypothyroidism, unspecified; E78.5 Hyperlipidemia, unspecified; I25.10 Atherosclerotic heart disease of native coronary artery without angina pectoris; E66.9 Obesity, unspecified; Z68.33 Body mass index [BMI] 33.0-33.9, adult
CPT/HCPCS: 36415; 72100-TC-FY; 80048; 85025; 85027; 86850; 86900; 86901; 94760; 97116-GP; 97161-GP

== ENCOUNTER 2024-12-17 05:13 | Day surgery (SDC) | payer BC ==
[2024-12-15 15:18] VITALS: BMI 35.6
[2024-12-17] MEDS ORDERED: ACETAMINOPHEN 500 MG TABLET (FP) PO PRN (08:57)
[2024-12-17] MEDS: IOHEXOL 180 MG/1 ML ML IJ ONE ×4 (13:20→13:26)
[2024-12-17] MEDS: LIDOCAINE HCL 1% PRESERVATIVE FREE - 30ML VIAL IJ ONE ×2 (13:22)
[2024-12-17] MEDS: DEXAMETHASONE SOD PHOSPHATE 10 MG/1 ML VIAL IVPUSH ONE ×2 (13:28)
[2024-12-17 14:43] VITALS: BP 114/87; PULSE 78; RESP 20; TEMP 97.3
== END 2024-12-17 14:40 | disposition home or self-care (01) ==
LOC: JASU-SURG 05:13
PROVIDERS: ATTEND Pain Medicine Pain Medicine
PROC: 3E0R3BZ Introduction of Anesthetic Agent into Spinal Canal, Percutaneous Approach (ICD-10-PCS; 2024-12-17)
PROC: 3E0R33Z Introduction of Anti-inflammatory into Spinal Canal, Percutaneous Approach (ICD-10-PCS; principal; 2024-12-17 13:15)
DX: M54.16 Radiculopathy, lumbar region (principal)
CPT/HCPCS: 76000-TC-FY; J1100

== ENCOUNTER 2025-01-28 07:11 | Day surgery (SDC) | payer BC ==
[2025-01-28] MEDS: BUPIVACAINE HCL/PF 0.25% (2.5MG/ML) 10 ML VIAL IJ ONE
[2025-01-28] MEDS ORDERED: ACETAMINOPHEN 500 MG TABLET (FP) PO PRN (08:43)
[2025-01-28] MEDS ORDERED: CEFAZOLIN 2 GM/D5W 2 GM/50 ML ML IVPB ONE (12:26)
[2025-01-28] MEDS: CEFAZOLIN SODIUM 2 GM in DEXTROSE 5%-WATER 100 ML IVPB ONE (12:40)
[2025-01-28 12:44] VITALS: TEMP 97.7
[2025-01-28] MEDS ORDERED: DEXAMETHASONE SOD PHOSPHATE 4 MG/1 ML VIAL ONE (14:14)
[2025-01-28] MEDS ORDERED: LIDOCAINE HCL/PF 2% SDV 5ML VIAL ONE (14:14)
[2025-01-28] MEDS ORDERED: GLYCOPYRROLATE 0.2 MG/1 ML VIAL ONE ×2 (14:14→15:15)
[2025-01-28] MEDS ORDERED: ONDANSETRON 4 MG/2 ML VIAL ONE ×2 (14:14→15:15)
[2025-01-28] MEDS ORDERED: ACETAMINOPHEN INJECTION 100 ML ONE (14:15)
[2025-01-28] MEDS ORDERED: DEXMEDETOMIDINE HCL 200 MCG/2 ML IVPB ONE (14:15)
[2025-01-28] MEDS ORDERED: MIDAZOLAM HCL 2 MG/2 ML SINGLE DOSE VIAL ONE ×2 (14:17→15:25)
[2025-01-28] MEDS ORDERED: PROPOFOL 20 ML ONE (15:00)
[2025-01-28] MEDS ORDERED: METOCLOPRAMIDE HCL INJECTION 10 MG/2 ML VIAL ONE (15:15)
[2025-01-28] MEDS ORDERED: KETAMINE HCL 200 MG/20 ML VIAL ONE (15:21)
[2025-01-28] MEDS: LIDOCAINE HCL 1% PRESERVATIVE FREE - 30ML VIAL IJ ONE ×2 (15:24)
[2025-01-28] MEDS: LIDOCAINE HCL/PF 2% SDV 5ML VIAL INF ONE ×3 (15:24)
[2025-01-28] MEDS ORDERED: SEVOFLURANE 250 ML BTL ONE (15:42)
[2025-01-28 16:34] VITALS: BP 115/69; RESP 20
[2025-01-28 16:35] VITALS: PULSE 85
== END 2025-01-28 17:40 | disposition home or self-care (01) ==
LOC: JASU-SURG 07:11
PROVIDERS: ATTEND Pain Medicine Pain Medicine
PROC: 00HU3MZ Insertion of Neurostimulator Lead into Spinal Canal, Percutaneous Approach (ICD-10-PCS; principal; 2025-01-28 14:00)
DX: G89.4 Chronic pain syndrome (principal); M96.1 Postlaminectomy syndrome, not elsewhere classified
CPT/HCPCS: 63650; C1897; 76000-TC-FY